=== PATIENT | male | born 1960 | race Caucasian/White ===

== ENCOUNTER 2023-09-16 07:45 | Outpatient (OUT) | payer BC, SELFPAY ==
--- NOTE | 2023-09-16 08:04 | ECG_ITS ---
[facility] Test Date: 2023-09-16 Pat Name: FABY DONNELLY Department: Room: - Gender: Male [employer]: : 1960 Requested By: ADELAIDE LORENZANA Order Number: [id number] Reading MD: SADIE GAYLE Measurements Intervals [facility] Rate: 59 P: 48 ND: 205 QRS: 18 QRSD: 76 T: 70 QT: 352 QTc: 350 Interpretive Statements SINUS BRADYCARDIA NONSPECIFIC T-WAVE ABNORMALITY No previous ECG available for comparison Electronically Signed On 09-17-2023 6:50:38 EDT by SADIE GAYLE
--- NOTE | 2023-09-16 09:01 | PM.PRESUREVA ---
History of Present Illness History of Present Illness Chief complaint: R INGUINAL HERNIA Narrative: Patient presents for preadmission testing. The patient reports a right-sided hernia that occurred a few months ago after a coughing episode. The patient states the pain is worse with activities and better when he can lay down and reduce the hernia. He denies any nausea, vomiting, changes in bowel habits, or any other complaints. Review of Systems ROS Narrative REVIEW OF SYSTEMS: Negative except as stated in HPI, ten or more systems reviewed. Constitutional: No fever , chills, weakness ENT: No sore throat or epistaxis Cardiovascular: No edema, chest pain, palpitations, or activity intolerance Respiratory: No shortness of breath, cough, or wheezing Musculoskeletal: No joint pain or swelling Genitourinary: No dysuria or hematuria Neurological: No numbness, tingling, weakness, or headache Psychiatric: No mood changes PFSH PFSH Medical History (Updated 09/16/23 @ 08:27 by Aylcia Garcia NP) Arthritis ?M19.90 - Unspecified osteoarthritis, unspecified site (ICD-10) Back pain ?M54.9 - Dorsalgia, unspecified (ICD-10) High cholesterol ?E78.00 - Pure hypercholesterolemia, unspecified (ICD-10) Inguinal hernia ?K40.90 - Unilateral inguinal hernia, without obstruction or gangrene, not specified as recurrent (ICD-10) Kidney stones ?N20.0 - Calculus of kidney (ICD-10) S/P extracorporeal shock wave therapy ?Z98.890 - Other specified postprocedural states (ICD-10) Surgical History (Updated 09/16/23 @ 08:27 by Alycia Garcia NP) History of arthroscopy of knee ?Z98.890 - Other specified postprocedural states (ICD-10) History of hernia repair ?Z98.890 - Other specified postprocedural states (ICD-10) ?Z87.19 - Personal history of other diseases of the digestive system (ICD-10) S/P cystoscopy ?Z98.890 - Other specified postprocedural states (ICD-10) Family History (Updated 09/16/23 @ 08:27 by Alycia Garcia NP) Other Family history of hypertension Family history of stroke Social History (Updated 09/16/23 @ 08:21 by Alycia Garcia NP) Within the past year, how often did you have a drink containing alcohol: monthly or less Smoking status: Never smoker Non-prescribed substance use: denies use Previous occupational history: [employer] Highest level of school completed/degree received: high school graduate Meds Home Medications and Allergies Allergies Allergy/AdvReac Type Severity Reaction Status Date / Time No Known Drug Allergies Allergy Verified 09/16/23 08:20 Exam Narrative Exam Narrative: Constitutional: Awake, alert, comfortable, well-appearing, nontoxic, interactive, vital signs as charted Head: Normocephalic, atraumatic Neck: Supple, normal appearance, normal range of motion, no meningeal signs, no lymphadenopathy Respiratory: No respiratory distress, breath sounds clear Cardiovascular: Regular rate and rhythm, strong and regular heart tones Musculoskeletal: Normal gait, no swelling or edema Skin: No rashes or induration, no lesions, only visible skin inspected Neuro: No neurological deficits, normal sensation Psychiatric: Oriented ?3, normal affect Assessment and Plan Assessment and Plan (1) Inguinal hernia: Plan Right inguinal hernia repair with mesh scheduled with Dr. Chauhan 09/30/2023.
[2023-09-16 09:14] LABS: Basophils Percent Auto 0.6 % (0.2-2.0); Eosinophils Absolute Auto 0.2 10^3/uL (0.0-0.7); Eosinophils Percent Auto 3.1 % (0.9-7.0); Hematocrit 43.7 % (42.0-54.0); Hemoglobin 14.6 g/dL (14.0-18.0); Immature Granulocytes Abs Auto 0.01 10^3/uL (0.00-0.03); Immature Granulocytes Pct Auto 0.2 % (0.0-0.5); Lymphocytes Absolute Auto 1.6 10^3/uL (1.2-3.8); Lymphocytes Percent Auto 26.5 % (20.5-60.0); Mean Corpuscular HGB Conc 33.4 g/dL (29.9-35.2); Mean Corpuscular Hemoglobin 31.3 pg (25.9-34.0); Mean Corpuscular Volume 93.6 fL (80.0-94.0); Mean Platelet Volume 8.9 fL (9.5-13.5); Monocytes Absolute Auto 0.7 10^3/uL (0.3-0.8); Monocytes Percent Auto 10.9 % (1.7-12.0); Neutrophils Absolute Auto 3.6 10^3/uL (1.4-6.5); Neutrophils Percent Auto 58.7 % (43.0-75.0); Platelet Count 273 10^3/uL (150-450); Red Blood Count 4.67 10^6/uL (4.70-6.10); Red Cell Distribution Width 13.7 % (11.0-15.0); White Blood Count 6.2 10^3/uL (4.0-11.0)
== END 2023-09-16 07:46 | disposition home or self-care (01) ==
PROVIDERS: Visit Provider Surgery
DX: Z01.812 Encounter for preprocedural laboratory examination (principal); Z01.810 Encounter for preprocedural cardiovascular examination; K40.90 Unilateral inguinal hernia, without obstruction or gangrene, not specified as recurrent
CPT/HCPCS: 36415; 85025; 93005; G0463

== ENCOUNTER 2023-09-30 07:35 | Day surgery (SDC) | payer BC, SELFPAY ==
[2023-09-16 08:55] VITALS: BP 149/87; PULSE 70; RESP 16; TEMP 36.6; O2SAT 96; BMI 26.6
[2023-09-30] VITALS (12 sets, daily range): BP systolic 105–154; BP diastolic 71–96; PULSE 53–62; RESP 10–20; TEMP 36.1–37.3; O2SAT 95–99; BMI 26.1
--- NOTE | 2023-09-30 | OP_ITS ---
OPERATION DATE: ??09/30/2023 PREOPERATIVE DIAGNOSIS:? Right inguinal hernia. POSTOPERATIVE DIAGNOSIS:? 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 PROCEDURE:? Right inguinal herniorrhaphy with mesh insertion SURGEON:? Ruddy Chauhan M.D. ANESTHESIA:? General with laryngeal mask airway, as well as right sided TAP block per Dr. Ruvalcaba. ESTIMATED BLOOD LOSS:? Less than 17 mL. INDICATIONS AND CONSENT:? Patient is a 62-year-old male with history of enlarging, symptomatic, right inguinal hernia that is reducible.? Indications, risks, benefits, alternatives of proceeding with herniorrhaphy with mesh insertion explained extensively to the patient, including the risks of bleeding, infection, scarring, pain, recurrence, nerve injury, testicular injury, blood clot, pulmonary embolus, heart attack, anesthetic complications, need for further surgery or mesh removal.? All of his questions were answered.? Informed consent was obtained. PROCEDURE:? Patient brought to the operating room, placed in the supine position.? General anesthesia was induced.? He was prepped and draped in the usual sterile fashion.? Right groin incision was made in the area of the skin crease.? This was after TAP block was performed.? It was carried down through subcutaneous tissue using sharp dissection as well as electrocautery.? Anurag?s fascia was divided.? The external oblique, which was attenuated, was opened along the direction of its fibers, down through the external inguinal ring.? The cord structures were mobilized and retracted with a Tashi drain.? There were noted to be several cord lipomas that were freed up and reduced back to the internal ring.? One was excised and sent off to pathology.? The hernia sac:? There was an indirect sac that was freed up and reduced as well, through the internal ring.? There was a patulous internal ring that was imbricated with 2-0 Prolene suture.? The wound was irrigated with antibiotic saline.? There was good hemostasis.? A Bard 5 x 10 cm mesh was trimmed and a keyhole was created.? It was placed in the floor of the inguinal canal.? It was then secured circumferentially using interrupted 3-0 Vicryl sutures.? The arms were placed around the cord structures and secured.? Care was taken to avoid undue tension on the cord structures.? The wound was irrigated with antibiotic saline.? Once again, there was good hemostasis.? The external oblique was then closed with a running 3-0 Vicryl suture.? Anurag?s fascia was re-approximated with interrupted 3-0 Monocryl suture.? The skin was then closed with a running 4-0 subcuticular Monocryl suture and skin glue.? Sterile pressure dressing was applied.? Sponge and needle counts were correct x2 per nursing personnel. ?Patient tolerated procedure well, was sent to recovery room in good condition. CC:? Brooke LECHUGA
[2023-09-30] MEDS: LACTATED RINGER'S SOLUTION 1,000 ML 50 ML IV ×2 (08:06→11:42)
[2023-09-30] MEDS: CEFAZOLIN SODIUM/DEXTROSE,ISO 2 GM/50 ML PIGGYBACK IV (08:49)
--- NOTE | 2023-09-30 08:58 | PC.NURSE ---
0850 Timeout performed and patient positioned. Patient placed on O2 and monitors applied. Patient medicated per Dr. Ruvalcaba. Bedside Ultrasound used for site identification for the TAP BLOCK. Patient tolerated procedure well. Voiced no complaints or concerns. Block took from 0837 to 0845. Patient remained on monitor until taken back to OR.
[2023-09-30] MEDS: 0.9 % SODIUM CHLORIDE 10 ML INJ (09:57)
[2023-09-30] MEDS: BUPIVACAINE LIPOSOME/PF 266 MG/13.3 ML VIAL 13.3 MG INJ (09:58)
[2023-09-30] MEDS: CEFAZOLIN SODIUM 1,000 MG in 0.9 % SODIUM CHLORIDE 10 ML 10 MG IRR (09:58)
[2023-09-30] MEDS: BUPIVACAINE HCL 0.25% PF 25 MG/10 ML VIAL INJ (09:58)
--- NOTE | 2023-09-30 11:40 | PC.NURSE ---
Pep device instruction given. Patient verbalized a understanding and uses without difficulty
--- NOTE | 2023-09-30 12:30 | PC.NURSE ---
Upto br and voids without difficulty.
== END 2023-09-30 12:30 | disposition home or self-care (01) ==
PROVIDERS: Visit Provider Surgery
PROC: (CPT 49505; principal; 2023-09-30 09:05)
DX: K40.90 Unilateral inguinal hernia, without obstruction or gangrene, not specified as recurrent (principal); M19.90 Unspecified osteoarthritis, unspecified site; E78.00 Pure hypercholesterolemia, unspecified; Z87.442 Personal history of urinary calculi; E66.3 Overweight; Z68.26 Body mass index [BMI] 26.0-26.9, adult; D72.829 Elevated white blood cell count, unspecified; N13.9 Obstructive and reflux uropathy, unspecified; K40.30 Unilateral inguinal hernia, with obstruction, without gangrene, not specified as recurrent; D17.6 Benign lipomatous neoplasm of spermatic cord
CPT/HCPCS: 49505; 64488; 88304; C1781; J2704